=== PATIENT | male | born 1960 | race Caucasian/White ===

== ENCOUNTER 2016-07-19 13:30 | Emergency (ER) | payer BC ==
[2016-07-19] MEDS ORDERED: Sodium Chloride 0.9% 10 ML Syringe FLUSH PRN (13:56)
[2016-07-19] MEDS ORDERED: Sodium Chloride 0.9% 1,000 ML IV SCH (14:00)
[2016-07-19] MEDS ORDERED: HYDROmorphone 1 MG/ML Syringe IVPUSH ONE (14:05)
[2016-07-19] MEDS ORDERED: Ondansetron 4 MG/2 ML SDV IVPUSH ONE (14:05)
--- NOTE | 2016-07-19 15:09 | CT ---
CT abdomen and pelvis Technique: Multiple axial sections were obtained from above the dome of the diaphragm inferiorly through the pubic symphysis. Intravenous and oral contrast not utilized. Study has been performed as a ureteral stone protocol. Comparison: No previous exam. Findings: Nonobstructing calculus is seen inferiorly within the left kidney measuring 8.7 mm. Markedly dilated left ureter is seen due to a large obstructing stone within the distal left ureter measuring approximately 1.8 cm. This stone occurs approximately 2.2 cm proximal to the UVJ. Inflammatory change is noted around the left kidney compatible with change from the obstructing stone. Visualized lung bases shows nothing acute. Previous stomach surgery is noted. Noncontrast appearance of the liver and spleen appears within normal limits. Adrenal glands show no nodule. No discrete abnormality within the pancreas is seen. Gallbladder shows no calcified gallstones. Abdominal aorta shows atherosclerotic calcification without aneurysm. Diverticuli are seen within sigmoid colon. No pelvic mass or adenopathy is seen. Right hip prosthesis is noted. Small left-sided fat-containing inguinal hernia is seen. Bone window settings were reviewed which shows degenerative change with severe disc space narrowing at L2-L3 with degenerative endplate irregularity. Disc space narrowing is also seen at L5-S1 with vacuum phenomena. Lesser scattered degenerative change also noted throughout the spine. Impression: 1. 8.7 mm nonobstructing stone within the left kidney. 2. Markedly dilated left-sided ureter which is caused by an obstructing 1.8 cm stone within the distal left ureter located approximately 2.2 cm proximal to the UVJ. This stone will likely not pass due to its large size. Urologic consultation is recommended. Inflammatory change around the left kidney is seen caused by the obstructing stone. 3. Other incidental findings as described above. Diagnostic code #3
--- NOTE | 2016-07-19 16:33 | EDM.PDOC ---
ED HPI GENERAL MEDICAL PROBLEM - General Chief Complaint: Flank Pain Stated Complaint: POSSIBLE KIDNEY STONES Time Seen by Provider: 07/19/16 13:46 Source of Information: Reports: Patient, RN notes reviewed - History of Present Illness INITIAL COMMENTS - FREE TEXT/NARRATIVE: 56-year-old male comes in with severe left flank pain radiating towards his left groin. He did have an episode of back pain going to the flank about one month ago that then did resolve up until now. 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 The pain is sharp, shooting, varies in intensity but at times severely uncomfortable. He's had some nausea but no vomiting. No voiding symptoms. No fever or chills. No pain into his back yesterday or today Left Groin Pain Score (Numeric/FACES): 9 - Related Data Allergies Allergy/AdvReac Type Severity Reaction Status Date / Time No Known Allergies Allergy Verified 07/19/16 13:49 Home Meds: Home Meds Benazepril [Lotensin] 5 mg PO DAILY 07/19/16 [History] Meloxicam [Mobic] 15 mg PO DAILY 07/19/16 [History] Past Medical History Cardiovascular History: Reports: MS - Past Surgical History Cardiovascular Surgical History: Reports: Coronary artery stent GI Surgical History: Reports: Bariatric procedure Musculoskeletal Surgical History: Reports: Hip replacement, Other (see below) Other Musculoskeletal Surgeries/Procedures:: knee surgery, elbow surgery Social & Family History - Tobacco Use Smoking Status *Q: Never Smoker - Caffeine Use Caffeine Use: Reports: None - Recreational Drug Use Recreational Drug Use: No ED ROS GENERAL - Review of Systems Review Of Systems: See Below Constitutional: Denies: fever, chills, diaphoresis HEENT: Reports: No symptoms Respiratory: Denies: Shortness of Breath, Pleuritic Chest Pain Cardiovascular: Denies: Chest pain GI/Abdominal: Reports: Abdominal pain (Left flank radiating to left lower abdomen and left groin), Nausea. Denies: Diarrhea, Vomiting Musculoskeletal: Reports: back pain (One month ago, left flank pain today he) Skin: Reports: no symptoms Neurological: Reports: No Symptoms ED EXAM, RENAL/ - Physical Exam Exam: See Below General Appearance: alert, severe distress Eye Exam: bilateral eye: PERRL Throat/Mouth: Normal inspection, Normal oropharynx Head: atraumatic. No: facial swelling Neck: supple, full range of motion. No: lymphadenopathy (L), lymphadenopathy (R ) Respiratory/Chest: no respiratory distress, lungs clear, normal breath sounds Cardiovascular: regular rate, rhythm GI/Abdominal: Soft, Tender (Very mild tenderness left lower abdomen). No: Guarding, Rebound Back Exam: CVA tenderness (L) (Mild) Extremities: normal inspection, normal range of motion Neurological: alert, oriented, no motor/sensory deficits Skin Exam: Warm, Dry, Normal color Course - Vital Signs Last Recorded V/S: Last Vital Signs Temp 98 F 07/19/16 13:45 Pulse 76 07/19/16 16:30 Resp 16 07/19/16 16:30 BP 148/89 H 07/19/16 16:30 Pulse Ox 99 07/19/16 16:30 - Orders/Labs/Meds Orders: Active Orders 24 hr Category Date Time Status Peripheral IV Care [RC] . DIRECTED Care 07/19/16 13:56 Active Sodium Chloride 0.9% [Normal Saline] 1,000 ml Med 07/19/16 14:00 Active IV ONETIME Sodium Chloride 0.9% [Saline Flush] Med 07/19/16 13:56 Active 10 ml FLUSH ASDIRECTED PRN Peripheral IV Insertion Adult [OM.PC] Stat Oth 07/19/16 13:55 Ordered Medication Orders Sodium Chloride (Normal Saline) 1,000 mls @ 999 mls/hr IV ONETIME [facility] Last Admin: 07/19/16 14:27 Dose: 999 mls/hr Sodium Chloride (Saline Flush) 10 ml FLUSH ASDIRECTED PRN PRN Reason: Keep Vein Open Last Admin: 07/19/16 14:20 Dose: 10 ml Labs: Laboratory Tests 07/19/16 Range/Units 14:35 Urine Color Yellow (Yellow) Urine Appearance Clear (Clear) Urine pH 5.5 (5.0-8.0) Ur Specific [place] > or = 1.030 (1.005-1.030) Urine Protein 1+ H (Negative) Urine Glucose (UA) Negative (Negative) Urine Ketones 2+ H (Negative) Urine Occult Blood 2+ H (Negative) Urine Nitrite Negative (Negative) Urine Bilirubin Negative (Negative) Urine Urobilinogen 0.2 (0.2-1.0) Ur Leukocyte Esterase Negative (Negative) Urine RBC 40-50 H (0-5) /hpf Urine WBC 0-5 (0-5) /hpf Ur Epithelial Cells Not Reportable Ur Squamous Epith Cells 0-5 (0-5) /hpf Urine Bacteria Few (FEW) /hpf Urine Mucus Few (FEW) /hpf Meds: Medications Generic Name Dose Route Start Last Admin Trade Name Freq PRN Reason Stop Dose Admin Sodium Chloride 1,000 mls @ 999 mls/hr 07/19/16 14:00 07/19/16 14:27 Normal Saline IV 999 mls/hr ONETIME [facility] Administration Sodium Chloride 10 ml 07/19/16 13:56 07/19/16 14:20 Saline Flush FLUSH 10 ml ASDIRECTED PRN Administration Keep Vein Open Discontinued Medications Generic Name Dose Route Start Last Admin Trade Name Freq PRN Reason Stop Dose Admin Hydromorphone HCl 1 mg 07/19/16 14:05 07/19/16 14:25 Dilaudid IVPUSH 07/19/16 14:06 1 mg ONETIME ONE Administration Ondansetron HCl 4 mg 07/19/16 14:05 07/19/16 14:23 Zofran IVPUSH 07/19/16 14:06 4 mg ONETIME ONE Administration - Re-Assessments/Exams Free Text/Narrative Re-Assessment/Exam: 07/19/16 17;00. Patient good relief of discomfort after Dilaudid 1 mg IV, he was also given Zofran 4 mg IV and some IV fluid. CT, renal study does show a 1.8 cm stone distal left ureter, see radiologist report for details. With the onset of his pain about a month ago primarily in the back going slightly to the left flank and now progression of discomfort left flank and left groin today actually wonder if this stone did not start traveling a full month ago when he first had his initial symptoms. He was seen at the [place] emergency department but did not have a CT scan done at that time. UA and labs today are as documented. Patient lives in [place]. If possible they would like to do urology followup in [place]. Apparently there is a urologist that does come to the [place] clinic once or twice a month. Patient has an appointment made by his for 2:00 Sunday afternoon of this next week. Discharge instructions as documented Departure - Departure Time of Disposition: 16:31 Disposition: Home, Self-Care 01 Condition: fair Clinical Impression: Ureteric colic - Discharge Information Instructions: Kidney Stones, [id number] Referrals: Earnestine Garnica PA-C [Primary Care Provider] - Forms: ED Department Discharge Additional Instructions: Drink enough water to maintain hydration, Tylenol 3 times daily for mild to moderate pain as needed or Percocet pain by mouth needed for severe pain. Do not drive or work when taking the narcotic Percocet pain medication, see urologist next Sunday as planned. If pain becomes much worse again, not controllable with oral Percocet and I do recommend going to the [facility] ED, or call Urology clinic for more prompt referral to [facility]. - My Orders Last 24 Hours: My Active Orders 07/19/16 13:55 Peripheral IV Insertion Adult [OM.PC] Stat 07/19/16 13:56 Peripheral IV Care [RC] . DIRECTED Sodium Chloride 0.9% [Saline Flush] 10 ml FLUSH ASDIRECTED PRN 07/19/16 14:00 Sodium Chloride 0.9% [Normal Saline] 1,000 ml IV ONETIME - Assessment/Plan Last 24 Hours: My Active Orders 07/19/16 13:55 Peripheral IV Insertion Adult [OM.PC] Stat 07/19/16 13:56 Peripheral IV Care [RC] . DIRECTED Sodium Chloride 0.9% [Saline Flush] 10 ml FLUSH ASDIRECTED PRN 07/19/16 14:00 Sodium Chloride 0.9% [Normal Saline] 1,000 ml IV ONETIME
[2016-07-19 16:42] VITALS: BP 148/89
== END 2016-07-19 16:45 | disposition home or self-care (01) ==
LOC: JD.ED 13:30
DX: N20.2 Calculus of kidney with calculus of ureter (principal); I25.2 Old myocardial infarction; Z79.899 Other long term (current) drug therapy; Z95.5 Presence of coronary angioplasty implant and graft; Z98.84 Bariatric surgery status; Z96.659 Presence of unspecified artificial knee joint; Z98.890 Other specified postprocedural states
CPT/HCPCS: 74176; 81001; 96361; 96374; 96375; 99284; J1170; J2405; J7040; J7050

== ENCOUNTER 2021-03-31 16:15 | Emergency (ER) | payer BC ==
[2021-03-31 16:25] VITALS: PULSE 66
[2021-03-31 16:28] VITALS: BP 117/77
== END 2021-03-31 18:40 | disposition home or self-care (01) ==
LOC: JD.ED 16:15
DX: R45.851 Suicidal ideations (principal); F10.120 Alcohol abuse with intoxication, uncomplicated; I25.2 Old myocardial infarction; Y90.0 Blood alcohol level of less than 20 mg/100 ml
CPT/HCPCS: 36415; 80053; 80307; 85025; 99284